=== PATIENT | male | born 1980 | race Caucasian/White ===

== ENCOUNTER 2019-06-21 17:21 | Emergency (ER) | payer OTHER ==
[~2019-06-21] VITALS: Ht 167.6 cm; Wt 99.8 kg
[~2019-06-21 17:21] MED LIST: CELEXA20 MG PO; CIPRO500 MG PO; FLAGYL500 MG PO; HYDROCODONE-AP1 EAC6 PO; ONDANSETRON HCL4 M2 PO; PEPCID20 MG PO; ULTRAM 50MG TAB50 MG PO; ZANAFLEX4 MG PO
[2019-06-21] MEDS ORDERED: MOBIC7.5 MG PO (17:31)
[2019-06-21] MEDS ORDERED: ASPIR 8181 MG PO (17:31)
[2019-06-21] MEDS ORDERED: NEURONTIN 300300 M1 PO (17:31)
[2019-06-21] MEDS ORDERED: TRAMADOL 50 MG50 MG PO (18:53)
[2019-06-21 19:38] VITALS: BP 130/86
== END 2019-06-21 19:40 | disposition home or self-care (01) ==
LOC: M.ERS 17:21
DX: M25.561 Pain in right knee (principal); M19.90 Unspecified osteoarthritis, unspecified site; F41.9 Anxiety disorder, unspecified; Z88.6 Allergy status to analgesic agent; Z88.2 Allergy status to sulfonamides; Z88.0 Allergy status to penicillin; Z88.5 Allergy status to narcotic agent; Z88.1 Allergy status to other antibiotic agents